=== PATIENT | female | born 1990 | race Native Hawaiian/Other Pacific Islander ===

== ENCOUNTER 2019-02-17 22:14 | Emergency (ER) | payer OTHER ==
[~2019-02-17] VITALS: Ht 157.5 cm; Wt 100.0 kg
[2019-02-17 22:15] VITALS: BP 135/83
[2019-02-17] MEDS ORDERED: EXCETAB33 PO (22:30)
[2019-02-17] MEDS ORDERED: IBUP200T45 PO (22:30)
[2019-02-17] MEDS ORDERED: LIDOCAINE W/EPINEPHRINE 1% 20ML VIAL SC ONE (22:45)
[2019-02-17] MEDS ORDERED: BUPIVACAINE HCL 0.5% 10 ML VIAL SC ONE (22:45)
[2019-02-17] MEDS ORDERED: PENICILLIN V POTASSIUM 500 MG TAB PO ONE (22:45)
[2019-02-17] MEDS ORDERED: CETACAINE SPRAY 5GM TOP ONE (22:45)
[2019-02-17] MEDS ORDERED: PENI500T PO (23:44)
[2019-02-17] MEDS ORDERED: PERC5TAB12 PO (23:44)
[2019-02-17] MEDS ORDERED: PERCOCET 5MG/325MG TAB PO ONE (23:45)
[2019-02-18] MEDS ORDERED: PERCOCET 5MG/325MG TAB PO ONE
== END 2019-02-17 23:56 | disposition home or self-care (01) ==
LOC: M ED 22:14
DX: K04.7 Periapical abscess without sinus (principal)